=== PATIENT | male | born 1970 | race Caucasian/White ===

== ENCOUNTER 2018-02-25 09:32 | Inpatient (IN) | payer OTHER ==
[~2018-02-25] VITALS: Ht 152.4 cm; Wt 119.5 kg
[2018-02-25] VITALS (64 sets, daily range): BP systolic 70–150; BP diastolic 34–95
[2018-02-25] MEDS ORDERED: METFORMIN HCL500 MG PO (09:38)
[2018-02-25] MEDS ORDERED: SYNTHROID125 MC1 PO (09:39)
--- NOTE | 2018-02-25 09:41 | NUR ---
STEMI STARTED AT [address] FREED, SEE PAPERWORK
[2018-02-25 09:57] LABS: ABSOLUTE EOSINOPHILS 0.1 thou/uL (0.0-0.7); ABSOLUTE LYMPHOCYTES 1.4 thou/uL (0.8-5.3); ABSOLUTE MONOCYTES 0.6 thou/uL (0.0-1.2); ABSOLUTE NEUTROPHILS 4.2 thou/uL (1.6-8.1); BASOPHILS 0.1 %; EOSINOPHILS 0.8 %; HEMATOCRIT 45.6 % (42.0-52.0); HEMOGLOBIN 15.5 gm/dL (14.0-18.0); LYMPHOCYTES 22.3 %; MCHC 34.1 g/dL (28.0-37.0); MCV 88.2 fL (80.0-100.0); MONOCYTES 9.4 %; MPV 7.8 fl. (7.2-11.1); NUCLEATED RBCS 0 /100WBC; PLATELET COUNT* 227 thou/uL (150-400); POLYS 67.4 %; RBC 5.17 mil/uL (4.50-6.00); RDW-CV 14.2 % (10.5-14.5); WBC 6.2 thou/uL (4.0-11.0)
[2018-02-25 10:04] LABS: ANION GAP 7 mmol/L (7-16); BUN 11 mg/dL (7-18); CALCIUM 8.9 mg/dL (8.5-10.1); CHLORIDE 103 mmol/L (98-107); CO2 29 mmol/L (21-32); CREATININE 1.1 mg/dL (0.6-1.3); GLUCOSE 142 mg/dL (70-99); POTASSIUM 3.8 mmol/L (3.5-5.1); SODIUM 139 mmol/L (136-145)
[2018-02-25 10:08] LABS: APTT 27.8 Seconds (25.0-31.3)
[2018-02-25 10:27] LABS: ALBUMIN 4.1 g/dL (3.4-5.0); ALKALINE PHOSPHATASE 100 U/L (46-116); CK-MB MASS 1.4 ng/mL (<0.5-3.6); LIPASE 154 U/L (73-393); MAGNESIUM 1.7 mg/dL (1.8-2.4); NT-PRO BRAIN NAT PEPTIDE 43 pg/mL (<300); SGOT 12 U/L (15-37); SGPT 20 U/L (30-65); TOTAL BILIRUBIN 0.4 mg/dL (<0.1-1.0); TOTAL PROTEIN 7.8 g/dL (6.4-8.2); TROPONIN-I LEVEL <0.06 ng/mL (<0.06)
--- NOTE | 2018-02-25 13:50 | NUR ---
PATIENT ARRIVED TO UNIT AT 1300 FROM SPLICER HELPER. PATIENT AOX4. REPORTING CHEST PAIN AT 5/10. RIGHT GROIN SITE INTACT, NO DRAINAGE, NO HEMATOMA NOTED. VITALS STABLE WITH THE EXCEPTION OF SOFT BLOOD PRESSURE. RHYTHM WAS NSR, ELEVATIONS STILL NOTED IN LEAD II. NS @ 900 ML/HR INFUSING PER DR BURGESS. PATIENT HAD ANAPYLACTIC REACTION TO AGGRASTAT DURING CASE. PHYSICIAN WAS UNABLE TO COMPLETE CASE R/T REACTION. FAMILY ON UNIT TO VISIT WITH PATIENT. EKG COMPLETED AND GIVEN TO DR BURGESS BY SPLICER HELPER RN. PATIENT LEFT UNIT AT 1345 TO RETURN TO SPLICER HELPER.
--- NOTE | 2018-02-25 15:03 | NUR ---
PATIENT RETURNED TO THE UNIT FROM IT SERVICE MANAGER AT 1500. PATIENT AOX4, CALM, RELAXED. NSR ON FIRE PATROL WITH NO ELEVATIONS NOTED. AGGRASTAT 0.15 RUNNING, ORDERS TO RUN UNTIL 0600. PATIENT DENIES CHEST PAIN OR PAIN ELSEWHERE. RIGHT GROIN SITE WAS UTILIZED AGAIN DURING CASE. SITE REMAINS CLEAN/DRY/INTACT. NO HEMATOMA NOTED. IN ROOM AT THIS TIME.
--- NOTE | 2018-02-25 16:27 | EKG ---
[place] [address] ELECTROCARDIOGRAM REPORT Name: SINDY SANZ Room: [address] ADM IN M.R.#: [id number] Admission: 02/25/18 Attend Phys: Violeta Branham Discharge: Date of : 68 Report #: [id number] THIS REPORT FOR: //name// [facility] ED Test Date: 2018-02-25 Test Time: 09:36:14 Pat Name: SINDY SANZ Department: Room: [facility] Gender: M Commodity Buyer[place] [facility] [place] 1970 Requested By: Venkat Blanc Order Number: [id number] Clarissa MD: Harlan Grande Measurements Intervals [place] Rate: 48 P: 36 MI: 155 QRS: 40 QRSD: 97 T: 92 QT: 402 QTc: 360 Interpretive Statements Sinus bradycardia Inferoposterior infarct, acute (RCA) Lateral leads are also involved Probable RV involvement, suggest recording right precordial leads No previous ECG available for comparison Electronically Signed On 02-25-2018 16:27:28 CHECK GRADER by Harlan Grande [email or web address] <ELECTRONICALLY SIGNED> By: Harlan Grande MD, [facility] 02/25/18 1627 0936 0936 Harlan Grande MD, [facility] /EPI
--- NOTE | 2018-02-25 16:31 | EKG ---
[place] [address] ELECTROCARDIOGRAM REPORT Name: SINDY SANZ Room: [address] ADM IN M.R.#: [id number] Admission: 02/25/18 Attend Phys: Violeta Branham Discharge: Date of : 68 Report #: [id number] THIS REPORT FOR: //name// [facility] Test Date: 2018-02-25 Test Time: 13:14:33 Pat Name: SINDY SANZ Department: Room: [facility] Gender: M Concrete Pourer: : 1970 Requested By: Hayden Staley Order Number: [id number] MD: Harlan Grande Measurements Intervals [place] Rate: 84 P: 55 GA: 167 QRS: 75 QRSD: 90 T: 78 QT: 372 QTc: 440 Interpretive Statements Sinus rhythm Inferoposterior infarct, acute (LCx) Lateral leads are also involved ST depression V1-V3, suggest recording posterior leads No previous ECG available for comparison Electronically Signed On 02-25-2018 16:30:50 SHIFT SUPERVISOR FILM PROCESSING by Harlan Grande [email or web address] <ELECTRONICALLY SIGNED> By: Harlan Grande MD, FAC 02/25/18 1630 1314 1314 Harlan Grande MD, [facility] /EPI
--- NOTE | 2018-02-25 17:47 | NUR ---
AT 1630, PATIENT CALLED OUT FEELING DIZZY. SIGNIFICANT HEMATOMA NOTED. DR JEREZ ON THE FLOOR. PRESSURE HELD. SIGNIFICANT DECREASE IN PATIENT BLOOD PRESSURE WITH HOLDING PRESSURE. ORDERS TO RUN FLUIDS WIDE OPEN. PEDAL PULSE REMAINS 2+. DR BURGESS ON THE FLOOR, ORDERS FOR WHITFIELD CATHETER, PLACED WITHOUT DIFFICULTY. BLOOD PRESSURES REMAINING LOW BUT MAP >60. PATIENT FEELS FATIGUED. SLIGHTLY PALE, BUT CONVERSATIONAL. BLOOD PRESSURES Q5MIN. GROIN CHECKED FREQUENTLY, NO INCREASE IN SIZE. DR JEREZ TO CALL THE FLOOR AND CHECK ON PATIENT.
--- NOTE | 2018-02-25 18:47 | NUR ---
DR BURGESS PAGED TO CLARIFY FLUID ORDERS. INFORMED HIM THAT PATIENT'S BLOOD PRESSURE IS REMAINING IN 80/50 RANGE WITH MAP 60-62 WITH FLUIDS WIDE OPEN. ORDERS TO LEAVE FLUIDS WIDE OPEN AT THIS TIME, DRAW STAT H&H. PATIENT COMPLAINTS OF COLD. ANTHONY SUNNIER IN PLACE FOR COMFORT.
[2018-02-25 19:17] LABS: HEMOGLOBIN 12.4 gm/dL (14.0-18.0)
--- NOTE | 2018-02-25 19:33 | NUR ---
STAT H& RESULTS READ TO DR BURGESS. ORDES TO START DOPAMIN AT 5 MCG/KG/MIN AND TITRATE TO 10 MCG/KG/MIN IF TOLERTATED. PER DR BURGESS, BACK OFF FLUIDS T 125 ML/HR WHEN SYSTOLIC >90, MAP >65.
[2018-02-26] VITALS (48 sets, daily range): BP systolic 76–118; BP diastolic 34–69
[2018-02-26 04:12] LABS: HEMATOCRIT 38.6 % (42.0-52.0); HEMOGLOBIN 12.9 gm/dL (14.0-18.0); MCH 29.7 pg (26.0-34.0); MCHC 33.4 g/dL (28.0-37.0); MCV 88.9 fL (80.0-100.0); RBC 4.35 mil/uL (4.50-6.00); RDW-CV 14.5 % (10.5-14.5); WBC 14.7 thou/uL (4.0-11.0)
[2018-02-26 05:08] LABS: ALBUMIN 2.9 g/dL (3.4-5.0); ALKALINE PHOSPHATASE 54 U/L (46-116); ANION GAP 8 mmol/L (7-16); BUN 11 mg/dL (7-18); CHLORIDE 106 mmol/L (98-107); CHOLESTEROL 115 mg/dL (<200); CK-MB MASS 60.6 ng/mL (<0.5-3.6); CO2 24 mmol/L (21-32); CREATININE 1.1 mg/dL (0.6-1.3); GLUCOSE 219 mg/dL (70-99); HDL CHOLESTEROL 32 mg/dL (>40); LDL CHOLESTEROL 67 mg/dL (<100); POTASSIUM 4.3 mmol/L (3.5-5.1); SGOT 66 U/L (15-37); SGPT 25 U/L (30-65); SODIUM 138 mmol/L (136-145); TC:HDL 3.6 Ratio (Not establshd); TOTAL BILIRUBIN 0.5 mg/dL (<0.1-1.0); TOTAL PROTEIN 5.8 g/dL (6.4-8.2); TRIGLYCERIDE 84 mg/dL (<150); VLDL 17 mg/dL (<40)
[2018-02-26 05:12] LABS: SERUM ASSESSMENT Clear
[2018-02-26 05:13] LABS: TROPONIN-I LEVEL 17.63 ng/mL (<0.06)
--- NOTE | 2018-02-26 06:28 | NUR ---
PATIENT STARTED ON DOPAMINE BEGINNING OF SHIFT, ABLE TO TITRATE DOPAMINE FROM 5MCG/KG/MIN TO 10MCG/KG/MIN AND NS DOWN FROM WIDE OPEN TO 125ML/HR PER ORDER. AGRASTAT DC'D AT 0000. PATIENT ABLE TO MAINTAIN MAP>65 SINCE 2044. AFEBRILE, DENIES CHEST PAIN, SOB, DISCOMFORT THROUGHOUT SHIFT. NO INCREMENT IN SIZE OR DISCOLORATION OF HEMATOMA SITE, PEDAL PULSES PRESENT AND STRONG BILATERALLY. PATIETNT DENIES PAIN TO HEMATOMA SITE. PATIENT ON 4L OF O2 PER NC THROUGHOUT MOST OF THIS SHIFT, TITRATED DOWN TO 1L AT THIS TIME DUE TO IMPROVED SPO2. GOOD OUTPUT THROUGH WHITFIELD. PATIENT STATES HE HOPES TO BE ABLE TO BE OUT OF BED MORE TODAY. CALL LIGHT WITHIN REACH, PATIENT SLEEPING IN BED. WILL CONTINUE TO MONITOR.
--- NOTE | 2018-02-26 10:32 | NUR ---
Nutrition: Consult for "DM and STEMI." Pt admitted with STEMI. H/o DM II, CAD. Heart Healthy diet ordered. Wt up a little form admit: 253#. RX: aspirin, insulin. Albumin 2.9, TG 84, BG 200s. Pt experienced severe anaphylaxis yday. Per ICU rounds, pt is very tired, hasn't slept d/t so many procedures. RD will offer education when pt is off of ICU unit. Will follow up 02/28/18.
--- NOTE | 2018-02-26 15:00 | NUR ---
CHART REVIEWED, SPOKE WITH PT AND . PT HAS BEEN ACTIVE AND INDEP AT HOME PRIOR TO THIS ADMISSION. HE SAID HE HAS RECENTLY GONE TO 'SOME HEALTH CLINIC, I CAN'T REMEMBER THE NAME OF IT.' HE WAS STARTED ON METFORMIN SEVERAL MONTHS AGO, AND THEN ON SYNTHROID ABOUT A MONTH AGO. HE SAID HE HAS AN APPT TO GO BACK TO THE CLINIC IN MARCH, HE HAS THE NAME AND PHONE NUMBER AT HOME. PT HAS A GLUCOSE METER AT HOME. PT IS SELF-EMPLOYED. PT HAS SUPPORTIVE FAMILY, DENIES ANY DISCHARGE NEEDS. DISCUSSED ROLE OF CASE MGT, WILL CONTINUE TO FOLLOW.
--- NOTE | 2018-02-26 17:05 | NUR ---
PATIENT PROGRESSING TOWARDS GOALS. TITRATED TO MCG/KG/MIN ON DOPAMINE THIS SHIFT. UP IN CHAIR. HEMATOMA TO RIGHT GROIN REMAINS STABLE. ON 2L NC THROUGHOUT SHIFT. WHITFIELD DISCONTINUED. ADEQUATE URINE OUTPUT. MULTIPLE FAMILY MEMBERS PRESENT THIS SHIFT. DENIES FURTHER NEEDS FROM NURSING STAFF AT THIS TIME.
--- NOTE | 2018-02-26 17:40 | 2DMMODE ---
[place] [address] 2 D/M-MODE ECHOCARDIOGRAM Name: SINDY SANZ Room: [address] IN [facility]#: [id number] Admission: 02/25/18 Attend Phys: Barrington Jacobs Discharge: Date of : 68 Date of Service: 02/26/18 1740 Report #: [id number] THIS REPORT FOR: //name// APPROVED REPORT Study performed: 02/26/2018 09:37:43 EXAM: Comprehensive 2D, Doppler, and color-flow Echocardiogram Patient Location: In-Patient Room #: [facility] Status: routine BSA: 2.35 HR: 57 bpm BP: 96/55 mmHg Rhythm: NSR Other Information Study Quality: Good Indications Acute OK 2D Dimensions IVSd: 11.63 (7-11mm) LVOT Diam: 20.92 (18-24mm) LVDd: 44.74 mm PWd: 10.57 (7-11mm) Ascending Ao: 37.04 (22-36mm) LVDs: 25.45 (25-40mm) Aortic Root: 35.43 mm Volumes Left Atrial Volume (Systole) LA ESV Index: 19.80 mL/m2 Aortic Valve AoV Peak Cornell.: 1.42 m/s AO Peak Gr.: 8.04 mmHg LVOT Max P.12 mmHg AO Mean Gr.: 4.72 mmHg LVOT Mean P.96 mmHg LVOT Max V: 1.24 m/s AO V2 VTI: 24.76 cm LVOT Mean V: 0.79 m/s NAHOMI (VTI): 3.16 cm2 LVOT V1 VTI: 22.74 cm Mitral Valve E/A Ratio: 1.75 MV Decel. Time: 245.39 ms MV E Max Cornell.: 0.84 m/[place] [address] 2 D/M-MODE ECHOCARDIOGRAM Name: SINDY SANZ Room: [address] IN [facility].#: [id number] Admission: 02/25/18 Attend Phys: Barrington Jacobs Discharge: Date of : 68 Date of Service: 02/26/18 1740 Report #: [id number] MV PHT: 71.16 ms MVA (PHT): 3.09 cm2 TDI E/Lateral E': 6.46 E/Medial E': 6.46 Medial E' Cornell.: 0.13 m/s Lateral E' Cornell.: 0.13 m/s Pulmonary Valve PV Peak Cornell.: 1.16 m/s PV Peak Gr.: 5.34 mmHg Tricuspid Valve RAP Estimate: 5.00 mmHg TR Peak Gr.: 22.95 mmHg RVSP: 28.00 mmHg PA Pressure: 28.00 mmHg Left Ventricle The left ventricle is normal size. Mild lateral wall hypokinesis. There is normal left ventricular wall thickness. Left ventricular systolic function is preserved. LVEF is 60-65%. The left ventricular diastolic function is normal. Right Ventricle The right ventricle is normal size. The right ventricular systolic function is normal. Atria The left atrium size is normal. The right atrium size is normal. Aortic Valve The aortic valve is normal in structure. No aortic regurgitation is present. There is no aortic valvular stenosis. Mitral Valve The mitral valve is normal in structure. There is no mitral valve regurgitation noted. No evidence of mitral valve stenosis. Tricuspid Valve The tricuspid valve is normal in structure. Trace tricuspid regurgitation. No pulmonary hypertension. Pulmonic Valve The pulmonary valve is normal in structure. [place] [address] 2 D/M-MODE ECHOCARDIOGRAM Name: SINDY SANZ Room: [address] IN [facility]#: [id number] Admission: 02/25/18 Attend Phys: Barrington Jacobs Discharge: Date of : 68 Date of Service: 02/26/18 1740 Report #: [id number] Great Vessels The aortic root is normal in size. IVC is normal in size and collapses >50% with inspiration. Pericardium There is no pericardial effusion. <Conclusion> The left ventricle is normal size. There is normal left ventricular wall thickness. Left ventricular systolic function is preserved. LVEF is 60-65%. The left ventricular diastolic function is normal. Mild lateral wall hypokinesis. Trace tricuspid regurgitation. No pulmonary hypertension. IVC is normal in size and collapses >50% with inspiration. <ELECTRONICALLY SIGNED> By: Venkat Blanc MD, FACC 02/26/18 [phone] 39 Venkat Blanc MD, FACC /INF
--- NOTE | 2018-02-26 18:07 | EKG ---
[place] [address] ELECTROCARDIOGRAM REPORT Name: SINDY SANZ Room: [address] ADM IN M.R.#: [id number] Admission: 02/25/18 Attend Phys: Violeta Branham Discharge: Date of : 68 Report #: [id number] THIS REPORT FOR: //name// [facility] Test Date: 2018-02-26 Test Time: 05:44:21 Pat Name: SINDY SANZ Department: Room: [facility] Gender: M Carton Filler: LAURITA : 1970 Requested By: Venkat Blanc Order Number: [id number] Reading MD: Venkat Blanc Measurements Intervals [place] Rate: 60 P: 108 WI: 117 QRS: 41 QRSD: 101 T: 18 QT: 383 QTc: 383 Interpretive Statements Sinus rhythm Borderline short WI interval Inferior infarct, acute (RCA) Borderline ST elevation, anterior leads Probable RV involvement, suggest recording right precordial leads Compared to ECG 02/25/2018 13:14:33 No significant changes Electronically Signed On 02-26-2018 18:07:07 IT DIRECTOR by Venkat Blanc [email or web address] <ELECTRONICALLY SIGNED> By: Venkat Blanc MD, FACC 02/26/18 1807 0544 0544 Venkat Blanc MD, [facility] /EPI
[2018-02-27] VITALS (46 sets, daily range): BP systolic 89–125; BP diastolic 46–76
--- NOTE | 2018-02-27 06:53 | NUR ---
Pt reports he feels better than yesterday. Denies chest pain. VSS, though BP soft at times (90s-100s/50s). Dopamine gtt weaned to 3 mcg/kg/min. New drsg placed to Rt groin; no new drainage from site, remains soft and bruised. Pt up in chair most of day and evening until 2229. Voiding without difficulty. Will continue to monitor.
[2018-02-27 12:59] LABS: ABSOLUTE MONOCYTES 0.8 thou/uL (0.0-1.2); ABSOLUTE NEUTROPHILS 5.5 thou/uL (1.6-8.1); BASOPHILS 0.1 %; EOSINOPHILS 0.2 %; HEMATOCRIT 29.2 % (42.0-52.0); LYMPHOCYTES 13.3 %; MCH 30.4 pg (26.0-34.0); MCHC 34.4 g/dL (28.0-37.0); MCV 88.5 fL (80.0-100.0); MONOCYTES 10.5 %; MPV 8.1 fl. (7.2-11.1); NUCLEATED RBCS 0 /100WBC; PLATELET COUNT* 215 thou/uL (150-400); POLYS 75.9 %; RBC 3.29 mil/uL (4.50-6.00); RDW-CV 13.8 % (10.5-14.5); WBC 7.2 thou/uL (4.0-11.0)
--- NOTE | 2018-02-27 14:41 | CARD ---
[facility] [address] [place] [address] CARDIAC CATH REPORT Name: UMUSINDY Room: [address] IN [facility].#: [id number] Admission: 02/25/18 Attend Phys: Violeta Branham Discharge: Date of : 68 Report #: [id number] THIS REPORT FOR: //name// APPROVED REPORT Study performed: 02/25/2018 09:30:41 Patient Details Patient Status: ED Room #: The patient is a 47 year-old male Event Personnel Venkat Blanc Adjunct Psychology Instructor, Harlan Grande Adjunct Psychology Instructor, Onelia Rajan RN Machine Folder, Aguila Carmona (R) Monitor, Mercy Chaudhry ANTISQUEAK APPLIER Scrub, Iqra Linares RTR Monitor Procedures Performed Art Access - R femoral artery* MEAGAN Place w/wo Plasty Single CIRC Hemostasis w/ Angioseal Indication STEMI Risk Factors Family History, Hypercholesterolemia Admission/Lab Medications/Medications given during procedure Aspirin, Platelet Aff. Inhib., Angiomax; heparin. The patient developed a profound reaction after administration of Angiomax with upper tension hives and mild difficulty of breathing suggesting an anaphylactoid response to the Angiomax. That medicine was discontinued and heparin was utilized thereafter. The patient received steroids Benadryl and epinephrine in therapy for the allergic response Procedure Narrative The patient was brought emergently to the Cardiac Catheterization Laboratory and was prepped and draped in a sterile manner. The right femoral was infiltrated with 2% Lidocaine subcutaneous anesthesia. A [place] 6 FR sheath was inserted into the right femoral artery. Coronary angiography was performed using coronary diagnostic catheters. The right coronary system was accessed and visualized with a Diagnostic 6Fr JR4 catheter. The left coronary system was accessed and visualized with a Diagnostic 6Fr JL4 catheter. Closure device was deployed with a Fr Angioseal STS 6Fr. [place]ost[place] [address] CARDIAC CATH REPORT Name: SINDY SANZ Room: [address] IN [facility].#: [id number] Admission: 02/25/18 Attend Phys: Violeta Branham Discharge: Date of : 68 Report #: [id number] manual pressure following sheath removal without any complications. A hematoma occurred. Intraoperative Conscious Sedation Sedation start time: 955 Case end Time: 1228 Versed 1 mg Fluoro Time: 65.1 minutes Dose: DAP [id number] cGycm2 6415 mGy Contrast Type and Amount: Visipaque 500 ml Diagnostic Cath Left Main 0% narrowing LAD 40% tubular proximal LAD narrowing with 100% chronic total occlusion of the mid LAD and 90% stenosis proximal portion of the first diagonal branch Circumflex 100% mid circumflex occlusion with local thrombus at the site Right Coronary 43% tubular proximalmid right coronary narrowing Hemodynamics The aortic pressure is 142/92 mmHg with a mean of 110 mmHg. PCI Technique Lesion Anticoagulation was achieved with Heparin. Percutaneous coronary intervention was performed on the mid circumflex artery segment. The lesion stenosis prior to intervention was 100% with CHEMA 0 flow. A Diagnostic 6Fr JL4 Guide Catheter was used to engage the ostium. A BMW 300cm Interventional Guidewire was used to cross the lesion. BALLOON DILATION A Balloon catheter Mini Trek RX 1.2X8 was inserted and inflated up to 14.00atm for 14seconds. Additional Inflation: 16.00atm for 9seconds. Additional Inflation: 14.00atm for 12seconds. STENT DEPLOYMENT A drug-eluting stent [place] RX Stent 2.0X12mm was inserted and inflated up to 16.00atm for 12seconds. Additional Inflation: 18.00atm for 11seconds. Additional Inflation: 18.00atm for 10seconds. POST STENT DEPLOYMENT BALLOON DILATION A Balloon catheter [place] Trek RX 2.25 X 8 was inserted and inflated up to 16.00atm for 15seconds. [place] [address] CARDIAC CATH REPORT Name: SINDY SANZ Room: [address] IN M.R.#: [id number] Admission: 02/25/18 Attend Phys: Violeta Branham Discharge: Date of : 68 Report #: [id number] Final angiography reveals 10 % stenosis with CHEMA 3 flow. COMMENTS After initial cineangiograms were performed utilizing a diagnostic JL4 catheter, I was unable to find a suitable guiding catheter and the intervention was performed through the diagnostic catheter outlined above. BALLOON DILATION A Balloon catheter was inserted and inflated up to 16.00atm for 12seconds. PCI Technique Lesion Percutaneous coronary intervention was performed on the mid circumflex artery segment. BALLOON DILATION A Balloon catheter Mini Trek RX 2.0 X 8 was inserted and inflated up to 18.00atm for 17seconds. Additional Inflation: 18.00atm for 14seconds. Additional Inflation: 18.00atm for 10seconds. PCI Technique Lesion Percutaneous coronary intervention was performed on the mid circumflex artery segment. BALLOON DILATION A Balloon catheter Trek RX 2.5 X 8 was inserted and inflated up to 12.00atm for 15seconds. Additional Inflation: 15.00atm for 14seconds. Additional Inflation: 16.00atm for 11seconds. Conclusion #[address] segment elevation myocardial infarction secondary to total occlusion of the mid circumflex with local thrombus at the site #2. Coronary artery disease characterized by the following: A total occlusion of the mid circumflex with local thrombus at the site B 40% proximal LAD narrowing with 100% chronic total occlusion of the mid LAD with 90% proximal first diagonal stenosis C dominant right coronary artery with 40-50% [place] [address] CARDIAC CATH REPORT Name: SINDY SANZ Room: [address]#: [id number] Admission: 02/25/18 Attend Phys: Violeta Branham Discharge: Date of : 68 Report #: [id number] vessel narrowing #2 normal systemic pressure throughout the study #3 anaphylactoid response to Angiomax with hypotension hives and mild respiratory difficulty responding to the administration of steroids Benadryl fluids and epinephrine #4 successful percutaneous coronary intervention with deployment of a drug-eluting stent at site of 100% midcircumflex occlusion with 10% residual narrowing CHEMA-3 flow to the distal vessel vessel and no residual thrombus. Recommendations Cardiac Risk Reduction Program Aggressive Medical Therapy Medications Administered Aspirin (any) Ticagrelor Diagnostic Cath Approved by: Venkat Blanc MD Date/Time: 02/27/2018 14:38:33 <ELECTRONICALLY SIGNED> By: Harlan Grande MD, [facility] 02/27/18 1440 1440 1440Jogerry Grande MD, FACC /INF
--- NOTE | 2018-02-27 14:49 | CARD ---
[address] [address] CARDIAC CATH REPORT Name: UMUSINDY [place] Room: [address] IN [facility]#: [id number] Admission: 02/25/18 Attend Phys: Violeta Branham Discharge: Date of : 68 Report #: [id number] THIS REPORT FOR: //name// APPROVED REPORT Study performed: 02/25/2018 13:34:18 Patient Details Patient Status: In-Patient Room #: The patient is a 47 year-old male Event Personnel Onelia Rajan RN RN, Mercy Linares, Mercy Chaudhry Holkins, John Supervisor Winter, Venkat Blanc Insurance Risk Surveyor Procedures Performed Art Access - R femoral artery* PTCA Single Vessel CIRC PCISINGLE after selective left coronary arteriography Indication STEMI , Acute stent thrombosis after recent deployment Risk Factors Hypercholesterolemia, Hypertension Previous Procedures/Diagnoses Previous PR Admission/Lab Medications/Medications given during procedure Glycoprotein IllbIlla Inhibitors, [place] [address] units, Aggrastat Unknown 11 ml, Aggrastat IV 19.5 ml per hr Procedure Narrative The patient was brought emergently to the Cardiac Catheterization Laboratory and was prepped and draped in a sterile manner. The right femoral was infiltrated with 2% Lidocaine subcutaneous anesthesia. A [place] 6 FR sheath was inserted into the right femoral artery. Coronary angiography was performed using coronary diagnostic catheters. The left coronary system was accessed and visualized with a Diagnostic JL4 catheter. The patient tolerated the procedure well and there were no complications associated with the procedure[place] [address] CARDIAC CATH REPORT Name: SINDY SANZ Room: [address]#: [id number] Admission: 02/25/18 Attend Phys: Violeta Branham Discharge: Date of : 68 Report #: [id number] Fluoro Time: 7.7 minutes Dose: 921.4 mGy Contrast Type and Amount: Visipaque 80 ml Diagnostic Cath Left Main 0% narrowing LAD 40% tubular proximal narrowing with 100% chronic total occlusion of the mid vessel with 90% first diagonal stenosis Circumflex 90% mid circumflex in-stent occlusion with local thrombus at the site Hemodynamics The aortic pressure is 75/49 mmHg with a mean of 62 mmHg. PCI Technique Lesion Percutaneous coronary intervention was performed on the mid circumflex. The lesion stenosis prior to intervention was 90% with CHEMA 2-3 flow. A Diagnostic 6Fr JL4 Guide Catheter was used to engage the ostium. A BMW 190cm Interventional Guidewire was used to cross the lesion. BALLOON DILATION A Balloon catheter Trek RX 2.25 X 8 was inserted and inflated up to 12.00atm for 11seconds. Additional Inflation: 18.00atm for 12seconds. Additional Inflation: 18.00atm for 11seconds. Final angiography reveals 10 % stenosis with CHEMA 3 flow. COMMENTS The patient developed early acute stent thrombosis of the recently deployed mid circumflex stent requiring mention with the addition of Aggrastat infusion to the heparin bolus Conclusion #1 early postprocedure stent thrombosis with recurrent ST segment elevation infarction #2 successful angioplasty at the site of 90% mid circumflex in-stent occlusion with local thrombus at the site with 10% residual narrowing following angioplasty and no thrombus noted #3 addition of Aggrastat to heparin during and post procedurally #4 additional coronary disease as outlined [place] [address] CARDIAC CATH REPORT Name: UMUSINDY GONZALEZ Room: [address] IN [facility]#: [id number] Admission: 02/25/18 Attend Phys: Violeta Branham Discharge: Date of : 68 Report #: [id number] note of 02/25/18 Recommendations Cardiac Risk Reduction Program Aggressive Medical Therapy Medications Administered Aggrastat bolus and infusion Diagnostic Cath Approved by: Venkat Blanc MD Date/Time: 02/27/2018 14:48:17 <ELECTRONICALLY SIGNED> By: Harlan Grande MD, [facility] 02/27/18 1448 1448 1448John Nita Grande MD, FACC /INF
--- NOTE | 2018-02-27 16:35 | NUR ---
PT FAMILY AT BEDSIDE. ASKED NURSES IF PT COULD GO OUTSIDE TO VAPE. THIS NURSE WENT INTO THE PTS ROOM AND INFORMED PT HE WAS NOT ALLOWED TO LEAVE THE HOSPITAL TO SMOKE OR VAPE ON HOSPITAL PROPERTY. THIS NURSE ASKED IF HE WOULD LIKE A NICOTINE PATCH. PT REFUSED. THIS NURSE ATTEMPTED TO EDUCATE PT ON THE VAPING. THE PT INTERUPTED ME AND TOLD ME "THIS HOSPITAL DOESN'T KNOW [place] ABOUT POPCORN LUNGS AND NEEDS TO BE RE-EDUCATED AND DO MORE RESEARCH BECAUSE HE HAS!" THE PT REQUESTED TO LEAVE AMA. PT WAS INFORMED OF THE HOSPITALS POLICY ON AMA. PT REQUESTED TO LEAVE ANYWAYS. PT REQUESTED NOT TO HAVE THIS NURSE COME BACK TO HIS ROOM. PT VERY AGGITATED AND STATED I UPSET HIM WHEN I ATTEMPTED TO TALK TO HIM ABOUT VAPING. DR. BURGESS WAS NOTIFIED. DR. BURGESS CALLED IN A PRESCRIPTION FOR PLAVIX. PT SIGNED AMA PAPERS AND HAD IV'S REMOVED. PT LEFT WITH FAMILY MEMBER.
--- NOTE | 2018-02-27 16:45 | NUR ---
PATIENT WAS UPSET BY HIS NURSES COMMENT THAT HE COULD NOT VAPE, ATTEMPTED TO EDUCATE PATIENT ON IMPORTANCE OF STAYING AND THAT SOME INSURANCES DON'T ALWAYS COVER WHEN A PATIENT LEAVES AMA, EDUCATED HIM ON THAT IF DIDNT UTILITY WORKER FORGE HIS MEDICATIONS AND TAKE THEM DAILY THAT HE COULD REOCCULDE AND END UP BACK IN THE HOSPITAL WITH THE SAME SENERIO. PATIENT VOICED THAT HE UNDERSTOOD AND STILL WANTED TO GO HOME BECAUSE HE FELT FINE AND HIS NURSE WOULDN'T LET HIM GO OUT TO VAPE. PATIENT SIGNED AMA PAPERWORK, IV TAKEN OUT, PATIENT WALKED OUT TO CAR, REFUSED WHEELCHAIR.
--- NOTE | 2018-03-03 12:47 | CON ---
[address] [address] CONSULTATION Name: SINDY SANZ Room: [address] IN M.R.#: [id number] Admission: 02/25/18 Attend Phys: Violeta Branham Discharge: 02/27/18 Date of : 68 Report #: [id number] THIS REPORT FOR: //name// CC: YESIKA physician/PCP Harlan Jacobs DATE OF SERVICE: 02/25/2018 INDICATION: Acute inferior wall ST elevation myocardial infarction. HISTORY OF PRESENT ILLNESS: The patient is a very pleasant 47-year-old gentleman with no prior cardiac history. Cardiac risk factors include diabetes type 2 and family history of coronary artery disease. The patient awoke this morning with midsternal chest discomfort starting approximately 7:30 and was brought to the Emergency Room. In the Emergency Room, he was found to have ST elevation in the inferior leads with bradycardia consistent with acute inferior wall myocardial infarction. The patient was given aspirin x 2 in the Emergency Room and taken urgently to the cardiac catheterization lab. At catheterization, he was found to have a chronically occluded LAD that filled by right to left collaterals and an acutely occluded mid circumflex coronary artery. A dominant right coronary artery was patent. The patient underwent urgent revascularization to the mid circumflex coronary artery. The patient ultimately had a 2.25 stent placed and postdilated to approximately 2.5 mm. Subsequent to this, after returning to the ICU, the patient had acute in-stent thrombosis and was returned to the cardiac catheterization lab. At this time, a noncompliant balloon was deployed and the patient placed on an Aggrastat drip in addition to his heparin. The patient's symptoms spontaneously resolved and he was again transferred back to the Intensive Care Unit. The patient remains stable at this time. Chest pain has resolved. PAST MEDICAL HISTORY: 1. Type 2 diabetes mellitus. 2. Hypothyroidism. PAST SURGICAL HISTORY: None. CURRENT MEDICATION: Metformin 500 mg daily and levothyroxine 125 mcg daily. ALLERGIES: KEFLEX AND NOW ANGIOMAX. THE PATIENT HAD RATHER SIGNIFICANT ALLERGIC REACTION TO THE ANGIOMAX DURING THE PROCEDURE. SOCIAL HISTORY: The patient quit smoking regular [place] [address] CONSULTATION Name: SINDY SANZ Room: [address]#: [id number] Admission: 02/25/18 Attend Phys: Violeta Branham Discharge: 02/27/18 Date of : 68 Report #: [id number] e-cigarette presently. Drinks alcohol occasionally. FAMILY HISTORY: Positive for coronary artery disease. REVIEW OF SYSTEMS: A 14-point review of systems noncontributory. PHYSICAL EXAMINATION: VITAL SIGNS: Presently stable. Blood pressure 98/48, pulse 72 and regular. GENERAL: This is a pleasant gentleman in no distress. Mood and affect appropriate. HEENT: Extraocular muscles intact. Mucous membranes are moist. NECK: Shows no jugular venous distention. There are no carotid bruits. CHEST: Reveals clear lung lowry without wheezes or rales. CARDIOVASCULAR: Reveals a regular rhythm without gallop or murmur. ABDOMEN: Reveals normal bowel sounds. The abdomen is soft, nontender. EXTREMITIES: Shows no edema. Peripheral pulses palpable. LABORATORY DATA: A 12-lead EKG on admission showed sinus bradycardia with ST segment elevation acutely in the inferior leads with reciprocal ST segment depression in the anterior leads. Labs showed sodium 139, potassium 3.8, chloride 103, bicarb 29, BUN 11, creatinine 1.1, serum glucose 142. LFTs are within normal limits. Total protein 7.8, albumin 4.1. Initial troponin was less than 0.06 and subsequently 0.84. NT-proBNP is 43. Coags are within normal limits. White blood cell count 6.2, hemoglobin 15.5, platelet count 227,000. Chest x-ray shows no acute cardiopulmonary abnormality. IMPRESSION AND RECOMMENDATIONS: 1. Acute inferior wall ST elevation myocardial infarction due to occluded circumflex coronary artery. The patient underwent percutaneous coronary intervention. He remains on Aggrastat, heparin and received aspirin. He was given Brilinta as well. He will remain on dual antiplatelet therapy for at least 6 months. Continue Aggrastat overnight. 2. Chronically occluded left anterior descending coronary artery that fills by collaterals. Consider noninvasive stress testing to evaluate whether this is causing any significant ischemia at this time, which would prompt further treatment. 3. Coronary artery disease. Continue dual antiplatelet therapy indefinitely. Continue risk factor modification. 4. Probable hyperlipidemia. We will start a statin agent [place] [address] CONSULTATION Name: SINDY SANZ Room: [address] IN [facility]#: [id number] Admission: 02/25/18 Attend Phys: Violeta Branham Discharge: 02/27/18 Date of : 68 Report #: [id number] fasting lipid profiles. 5. Type 2 diabetes mellitus per primary physician. <ELECTRONICALLY SIGNED> By: Venkat Blanc MD, FACC 03/03/18 1247 1700 2131[facility] campusdomingo Blanc MD, FACC /nt
== END 2018-02-27 17:31 | disposition left against medical advice (07) | DRG 247 ==
LOC: M.ERS 09:32 → M.CL 09:32 → M.ERS 09:50 → M.ICU 12:42 → M.TBA-CV 12:42 → M.ICU 13:00
PROVIDERS: Family Medicine; Internal Medicine Cardiovascular Disease; ADMIT Internal Medicine
PROC: 027034Z Dilation of Coronary Artery, One Artery with Drug-eluting Intraluminal Device, Percutaneous Approach (ICD-10-PCS; principal; 2018-02-25)
PROC: 02703ZZ Dilation of Coronary Artery, One Artery, Percutaneous Approach (ICD-10-PCS; principal; 2018-02-25)
PROC: 4A023N7 Measurement of Cardiac Sampling and Pressure, Left Heart, Percutaneous Approach (ICD-10-PCS; principal; 2018-02-25)
PROC: B211YZZ Fluoroscopy of Multiple Coronary Arteries using Other Contrast (ICD-10-PCS; principal; 2018-02-25)
DX: I21.19 ST elevation (STEMI) myocardial infarction involving other coronary artery of inferior wall (principal); T82.867A Thrombosis due to cardiac prosthetic devices, implants and grafts, initial encounter; E11.9 Type 2 diabetes mellitus without complications; F17.290 Nicotine dependence, other tobacco product, uncomplicated; I25.10 Atherosclerotic heart disease of native coronary artery without angina pectoris; Z53.21 Procedure and treatment not carried out due to patient leaving prior to being seen by health care provider; E03.9 Hypothyroidism, unspecified; I95.9 Hypotension, unspecified; Z79.82 Long term (current) use of aspirin; Z88.8 Allergy status to other drugs, medicaments and biological substances; Z82.49 Family history of ischemic heart disease and other diseases of the circulatory system; Z83.3 Family history of diabetes mellitus; Z79.899 Other long term (current) drug therapy; Y84.0 Cardiac catheterization as the cause of abnormal reaction of the patient, or of later complication, without mention of misadventure at the time of the procedure; Y92.230 Patient room in hospital as the place of occurrence of the external cause

== ENCOUNTER 2018-03-01 03:23 | Inpatient (IN) | payer OTHER ==
[~2018-03-01] VITALS: Ht 182.9 cm; Wt 114.8 kg
[2018-03-01] VITALS (8 sets, daily range): BP systolic 109–144; BP diastolic 70–93
[~2018-03-01 03:23] MED LIST: METFORMIN HCL500 MG PO; SYNTHROID125 MC1 PO
[2018-03-01] MEDS ORDERED: PLAVIX 75 MG TA75 M1 PO (03:34)
[2018-03-01] MEDS ORDERED: ASPIR 8181 MG PO (03:34)
[2018-03-01 03:57] LABS: ABSOLUTE EOSINOPHILS 0.1 thou/uL (0.0-0.7); ABSOLUTE MONOCYTES 0.6 thou/uL (0.0-1.2); ABSOLUTE NEUTROPHILS 5.1 thou/uL (1.6-8.1); BASOPHILS 0.2 %; EOSINOPHILS 0.8 %; HEMOGLOBIN 9.6 gm/dL (14.0-18.0); LYMPHOCYTES 14.2 %; MCHC 35.4 g/dL (28.0-37.0); MCV 87.6 fL (80.0-100.0); MONOCYTES 8.2 %; MPV 7.6 fl. (7.2-11.1); NUCLEATED RBCS 0 /100WBC; PLATELET COUNT* 216 thou/uL (150-400); POLYS 76.6 %; RBC 3.09 mil/uL (4.50-6.00); WBC 6.7 thou/uL (4.0-11.0)
[2018-03-01 04:09] LABS: CREATININE 0.8 mg/dL (0.6-1.3); POTASSIUM 3.5 mmol/L (3.5-5.1)
[2018-03-01 04:11] LABS: PROTIME 9.8 Seconds (9.20-11.50)
[2018-03-01 04:19] LABS: MAGNESIUM 1.7 mg/dL (1.8-2.4); TOTAL BILIRUBIN 0.5 mg/dL (<0.1-1.0); TOTAL PROTEIN 6.1 g/dL (6.4-8.2)
[2018-03-01 04:20] LABS: TROPONIN-I LEVEL 2.68 ng/mL (<0.06)
--- NOTE | 2018-03-01 17:17 | NUR ---
PATIENT PROGRESSING TOWARDS GOALS. REMAINED AOX4 TODAY. STARTED ON BID XARELTO FOR PULMONARY EMBOLISM. SAMPLES GIVEN BY CARDIOLOGY. CONTINUED ON DAILY PLAVIX FOR STENT FROM PREVIOUS PA. PATIENT DENIES FURTHER NEEDS FROM NURSING. POSSIBLE DISCHARGE TOMORROW.
[2018-03-02] VITALS: BP 124/77
[2018-03-02 04:00] VITALS: BP 118/82
--- NOTE | 2018-03-02 05:26 | NUR ---
ASSUMED PT CARE AT 1930. ASSESSMENT COMPLETED CHARTED. NO C/O PAIN OR DISCOMFORT UNTIL THIS MORNING WHILE LAYING FLAT. HAD 2/10 SHARP CHEST PAIN. PT SAT UP AND DRANK WATER AND STATED PAIN WENT AWAY. PT IN ROOM. PT RESTING IN BED AT THIS TIME. WILL CONTINUE TO MONITOR.
[2018-03-02 08:00] VITALS: BP 121/74
[2018-03-02 11:49] VITALS: BP 119/81
--- NOTE | 2018-03-02 12:29 | EKG ---
[place] [address] ELECTROCARDIOGRAM REPORT Name: SINDY SANZ Room: [place] [address] ADM IN M.R.#: [id number] Admission: 03/01/18 Attend Phys: Martínez Faith MD Discharge: Date of : 68 Report #: [id number] THIS REPORT FOR: //name// [facility] ED Test Date: 2018-03-01 Test Time: 03:25:13 Pat Name: SINDY SANZ Department: Room: [facility] Gender: M Manager Maritime: : 1970 Requested By: Louis Salazar Order Number: [id number] MD: Venkat Blanc Measurements Intervals [place] Rate: 77 P: 33 [place]: 165 QRS: -55 QRSD: 96 T: 45 QT: 562 QTc: 637 Interpretive Statements Sinus rhythm Inferior infarct, old Prolonged QT interval Compared to ECG 02/26/2018 05:44:21 Prolonged QT interval now present ST (T wave) deviation no longer present Myocardial infarct finding still present Electronically Signed On 03-02-2018 12:29:21 CURATOR OF EDUCATION by Venkat Blanc [email or web address] <ELECTRONICALLY SIGNED> By: Venkat Blanc MD, FACC 03/02/18 1229 0325 0325 Venkat Blanc MD, [facility] /EPI
[2018-03-02 13:14] VITALS: BP 124/70
[2018-03-02] MEDS ORDERED: XARELTO15 MG PO (14:09)
--- NOTE | 2018-03-02 14:25 | NUR ---
PT D/C'D TO HOME. ALL CONSULTS OK WITH D/C. IV AND CARDIAC MONITER D/C'D. EDUCATION GIVEN RE FOLLOW-UPS, MEDICATIONS, AND DRS ORDERS. ALL BELONGINGS PACKED UP AND LEFT WITH PT ACCOMPANIED BY FAMILY AND STAFF.
--- NOTE | 2018-03-03 12:47 | CON ---
[address] [address] CONSULTATION Name: MACHO SANZE [place] Room: [address] IN M.R.#: [id number] Admission: 03/01/18 Attend Phys: Martínez Faith MD Discharge: 03/02/18 Date of : 68 Report #: [id number] THIS REPORT FOR: //name// CC: Martínez Faith [facility] physician/PCP INDICATION: DVT and pulmonary embolus. HISTORY OF PRESENT ILLNESS: The patient is a very pleasant 47-year-old gentleman who was just hospitalized with acute inferolateral wall myocardial infarction. On catheterization, he was found to have an acutely occluded mid circumflex coronary artery. The LAD was found to be chronically occluded and filled by right to left collaterals. LV function was normal. Peak troponin at that time was 17. He underwent percutaneous coronary intervention and stenting of the acute occlusion in the circumflex. Post-procedure, he had thrombosis of the stent requiring a second trip to the lab. He was placed on more aggressive anticoagulation and the remainder of his hospital course was unremarkable. He presented to the Emergency Room with acute onset chest discomfort on the right side, which was different from his presenting symptoms with his myocardial infarction. He was found to have extensive pulmonary embolus involving the right pulmonary arteries. The patient has been placed on anticoagulation. At the time of interview, he is without complaint. PAST MEDICAL HISTORY: 1. Type 2 diabetes mellitus. 2. Coronary artery disease with recent percutaneous coronary intervention. 3. Hypothyroidism. 4. Pulmonary embolus on this admission. CURRENT MEDICATIONS: Metformin 500 mg daily, levothyroxine 125 mcg daily, aspirin 81 mg daily, Plavix 75 mg daily, metoprolol 25 mg b.i.d., atorvastatin 40 mg at bedtime. ALLERGIES: KEFLEX AND ANGIOMAX. SOCIAL HISTORY: The patient does not smoke regular cigarettes. He uses vaporizer. He drinks alcohol occasionally. FAMILY HISTORY: Positive for coronary artery disease. REVIEW OF SYSTEMS: A 14-point review of systems as per HPI, otherwise unremarkable. PHYSICAL EXAMINATION: VITAL SIGNS: Stable. Blood pressure 109/71, pulse is 56 and regular. GENERAL: This is a pleasant young gentleman in no distress. [place] [address] CONSULTATION Name: SINDY SANZ Room: [address] IN [facility]#: [id number] Admission: 03/01/18 Attend Phys: Martínez Faith MD Discharge: 03/02/18 Date of : 68 Report #: [id number] HEENT: Extraocular muscles intact. Mucous membranes moist. NECK: Shows no jugular venous distention. There are no carotid bruits. CHEST: Reveals clear lung lowry without wheezes or rales. CARDIOVASCULAR: Reveals regular rhythm, normal S1 and S2. I do not appreciate gallop or murmur. ABDOMEN: Reveals normal bowel sounds. The abdomen is soft, nontender. EXTREMITIES: Shows no edema. Peripheral pulses 2+ and palpable. The patient does have extensive bruising where his prior catheterization was done extending into the scrotum. IMPRESSION AND RECOMMENDATIONS: 1. Acute pulmonary embolus. Recommend Xarelto 15 mg b.i.d. for 20 days and then 20 mg daily thereafter for at least 3 months. 2. Coronary artery disease with recent percutaneous coronary intervention as outlined above. Continue dual antiplatelet therapy with aspirin 81 mg daily and Plavix 75 mg daily. 3. Type 2 diabetes. Continue metformin per primary service. 4. Hyperlipidemia. Based on the patient's development of coronary artery disease, would recommend continue atorvastatin 40 mg at bedtime. 5. The patient will be on multiple blood thinners including Xarelto, aspirin and Plavix. Should he develop any bleeding, would suggest that the aspirin be the first medicine to be held. In light of no bleeding at this time, I would continue triple therapy. <ELECTRONICALLY SIGNED> By: Venkat Blanc MD, FACC 03/03/18 1247 1304 1821Venkat Blanc MD, FACC /nt
== END 2018-03-02 14:47 | disposition home or self-care (01) | DRG 176 ==
LOC: M.ERS 03:23 → M.TBA-ER 04:23 → M.2W 05:25
PROVIDERS: Emergency Medicine Emergency Medical Services; ADMIT Internal Medicine
DX: I26.99 Other pulmonary embolism without acute cor pulmonale (principal); E11.9 Type 2 diabetes mellitus without complications; E03.9 Hypothyroidism, unspecified; I25.10 Atherosclerotic heart disease of native coronary artery without angina pectoris; E78.5 Hyperlipidemia, unspecified; F17.210 Nicotine dependence, cigarettes, uncomplicated; I25.2 Old myocardial infarction; Z95.5 Presence of coronary angioplasty implant and graft; Z79.02 Long term (current) use of antithrombotics/antiplatelets; Z79.82 Long term (current) use of aspirin; Z79.84 Long term (current) use of oral hypoglycemic drugs; Z79.899 Other long term (current) drug therapy; Z88.8 Allergy status to other drugs, medicaments and biological substances; Z82.49 Family history of ischemic heart disease and other diseases of the circulatory system; Z83.3 Family history of diabetes mellitus

== ENCOUNTER 2020-07-06 08:15 | Observation (INO) | payer OTHER ==
[~2020-07-06] VITALS: Ht 180.3 cm; Wt 68.0 kg
[~2020-07-06 08:15] MED LIST changes: +ASPIR 8181 MG PO; +PLAVIX 75 MG TA75 M1 PO; +XARELTO15 MG PO
[2020-07-06 08:38] LABS: HEMATOCRIT 46.2 % (42.0-52.0); HEMOGLOBIN 15.6 gm/dL (14.0-18.0); MCH 29.4 pg (26.0-34.0); MCHC 33.8 g/dL (28.0-37.0); MPV 7.8 fl. (7.2-11.1); RBC 5.31 mil/uL (4.50-6.00); RDW-CV 13.9 % (10.5-14.5); WBC 4.7 thou/uL (4.0-11.0)
[2020-07-06 08:46] LABS: POTASSIUM 4.1 mmol/L (3.5-5.1)
[2020-07-06 08:51] LABS: ALBUMIN 4.1 g/dL (3.4-5.0); TOTAL BILIRUBIN 0.7 mg/dL (<0.1-1.0); TOTAL PROTEIN 7.3 g/dL (6.4-8.2)
[2020-07-06 09:35] VITALS: BP 111/69
--- NOTE | 2020-07-06 14:23 | EKG ---
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[place] : 1970 Requested By: Alek Elaine Order Number: [id number] MD: Harlan Grande Measurements Intervals [place] Rate: 56 P: 31 DC: 171 QRS: -35 QRSD: 110 T: 88 QT: 433 QTc: 418 Interpretive Statements Sinus rhythm Left axis deviation Low voltage, extremity leads Baseline wander in lead(s) II,III,aVF Compared to ECG 03/01/2018 03:25:13 Left-axis deviation persists Low QRS voltage now present Myocardial infarct finding no longer present Prolonged QT interval no longer present Electronically Signed On 07-06-2020 14:23:10 CDT by Harlan Grande [email or web address] <ELECTRONICALLY SIGNED> By: Harlan Grande MD, [facility] 07/06/20 1423 9 9 Harlan Grande MD, [facility] /EPI
--- NOTE | 2020-07-06 14:46 | CARD ---
[address] [address] CARDIAC CATH REPORT Name: SINDY SANZ Room: [address] M.RDamion#: [id number] Admission: 07/06/20 Attend Phys: Harlan Grande MD, Discharge: Date of : 68 Report #: [id number] THIS REPORT FOR: cc: Melvin Way MD, Stephen D MD Holkins,Harlan Moya MD [facility] ~ APPROVED REPORT Study performed: 07/06/2020 09:12:13 Patient Details Patient Status: ED Room #: The patient is a 49 year-old male Event Personnel Harlan Grande Rn Admission, Kelli Jones RN Data Modeling Specialist, Lindsey Marcum RTR Monitor, Solo StackIS Scrub Procedures Performed Art Access - R femoral artery , Left Heart Cath w/or w/o Coronaries LHC , MEAGAN Place w/wo Plasty Single RCA , MEAGAN Place w/wo Plasty Single CIRC , Hemostasis w/ Angioseal Indication Unstable angina Risk Factors Family History, Hypercholesterolemia, Hypertension, Tobacco History () Previous Procedures/Diagnoses Previous PCI, Previous AL Admission/Lab Medications/Medications given during procedure Heparin IV 8000 units, Heparin IV 5000 units, Aggrastat IV bolus 10.9 ml, Aggrastat IV 19.9 ml per hr, Nitroglycerin IC 150 mcg, Solumedrol IV 125 mg, Benadryl IV 75 mg, Effient PO 60 mg, Aspirin PO 162 mg Procedure Narrative The patient was brought urgently to the Cardiac Catheterization Laboratory and was prepped and draped in a sterile manner. The right femoral was infiltrated with 2% Lidocaine [place] [address] CARDIAC CATH REPORT Name: SINDY SANZ Room: [address] Shawn#: [id number] Admission: 07/06/20 Attend Phys: Harlan Grande MD, Discharge: Date of : 68 Report #: [id number] conscious sedation was used throughout procedure with appropriate monitoring and was performed in the presence of a registered nurse who was an independent trained observer other than the physician performing the procedure. A 6F Ultimum sheath was inserted into the right femoral artery. Coronary angiography was performed using coronary diagnostic catheters. The right coronary system was accessed and visualized with a 6F JR4 catheter. The left coronary system was accessed and visualized with a 6F JL4 catheter. The left ventricle was accessed and visualized with a 6F Pigtail catheter. Left ventricular/Aortic Valve gradient assessed via catheter pullback. Left ventriculogram was performed in HAGER projection. Pre-demployment femoral angiogram was performed . Closure device was deployed with a 6 Fr Angioseal STS. The patient tolerated the procedure well and there were no complications associated with the procedure. There was no hematoma. The patient developed itching and wheals during the procedure he was given IV Solu-Medrol and IV Benadryl. There was no hypotension and no bradycardia or tachycardia. He demonstrated no wheezing and there was a never shortness of breath or desaturation. Intraoperative Conscious Sedation Sedation start time: 09:58 Case end Time: 11:26 Fentanyl 75 mcg Versed 3 mg Fluoro Time: 22.8 minutes Dose: DAP [id number] cGycm2 3631 mGy Contrast Type and Amount: Omnipaque 440 ml Diagnostic Cath Left Main 0% narrowing LAD 90% proximal LAD stenosis with subtotal mid vessel occlusion and minimal antegrade flow beyond the mid LAD; there were prominent right to left collaterals filling the distal LAD in retrograde fashion. Circumflex 90% mid vessel in-stent restenosis Right Coronary Dominant vessel with 75% tubular proximal narrowing and 90% focal stenosis at the acute margin; there were prominent collaterals from the distal right coronary artery to the LAD system Left Ventriculography The left ventricle is normal in size with normal contractility. The left ventricular ejection fraction is estimated to be 60%. Left ventricular wall motion abnormalities are present. [place] [address] CARDIAC CATH REPORT Name: MUUSINDY Koenig Room: [address] M.R.#: [id number] Admission: 07/06/20 Attend Phys: Harlan Grande MD, Discharge: Date of : 68 Report #: [id number] insufficiency. Subtle anterior hypokinesis is noted Hemodynamics The aortic pressure is 112/69 mmHg with a mean of 87 mmHg. The left ventricular pressure is 111/-2 mmHg with a mean of mmHg. The left ventricular end diastolic pressure is 8 mmHg. PCI Technique Lesion Anticoagulation was achieved with Heparin. Aggrastat IV bolus 10.9 ml given. Aggrastat gtt 19.9 ml/hr started. Patient was preloaded with Heparin IV 8000 units. Percutaneous coronary intervention was performed on the mid right coronary artery. The lesion stenosis prior to intervention was 90% with CHEMA 3 flow. A 6F JR 4.0 Guide Catheter was used to engage the right ostium. A ProwaterFlex 180CM Interventional Guidewire was used to cross the lesion. BALLOON DILATION A Balloon catheter Trek RX 2.5 X 8 was inserted and inflated up to 17.00atm for 22seconds. Additional Inflation: 18.00atm for 10seconds. STENT DEPLOYMENT A drug-eluting stent Santo RX Stent 2.75X8mm was inserted and inflated up to 15.00atm for 8seconds. Additional Inflation: 18.00atm for 8seconds. Additional Inflation: 20.00atm for 6seconds. POST STENT DEPLOYMENT BALLOON DILATION A Balloon catheter NC Trek RX 3.0 X 12 was inserted and inflated up to 15.00atm for 6seconds. Final angiography reveals 0 % stenosis with CHEMA 3 flow. PCI Technique Lesion 2 Percutaneous Coronary Intervention was performed on the proximal right coronary artery. The lesion stenosis prior to intervention was 75% with CHEMA 3 flow. Balloon Dilation A Balloon catheter Trek RX 2.75 X 15 was inserted and inflated up to 14.00atm for 11seconds. Stent Deployment A drug-eluting stent [place] RX Stent 3.0X22mm was inserted and inflated up to 12.00atm for 8seconds. Additional Inflation: 16.00atm for 7seconds. Additional Inflation: 18.00atm for 10seconds. [address] [address] CARDIAC CATH REPORT Name: SINDY SANZ Room: [address] Sonny Escobar#: [id number] Admission: 07/06/20 Attend Phys: Harlan Grande MD, Discharge: Date of : 68 Report #: [id number] Post Stent Deployment Balloon Dilation A Balloon catheter NC Trek RX 3.0 X 12 was inserted and inflated up to 17.00atm for 6seconds. Additional Inflation: 18.00atm for 8seconds. Final angiography reveals 0 % stenosis with CHEMA 3 flow. PCI Technique Lesion 3 Percutaneous Coronary Intervention was performed on the mid circumflex artery segment. Patient was preloaded with Heparin IV 8000 units. The lesion stenosis prior to intervention was 90% with CHEMA 3 flow. A 6FR LAUNCHER EBU 3.5 Guide Catheter was used to engage the left main ostium. A BMW 190cm Interventional Guidewire was used to cross the lesion. Balloon Dilation A Balloon catheter Trek RX 2.75 X 12 was inserted and inflated up to 12.00atm for 8seconds. Additional Inflation: 15.00atm for 9seconds. Stent Deployment A drug-eluting stent Santo RX Stent 2.21O69kd was inserted and inflated up to 14.00atm for 6seconds. Additional Inflation: 14.00atm for 7seconds. A 2nd drug-eluting stent Santo RX Stent 3.0 x 12mm was inserted and inflated up to 12 jose rafael for 5 seconds; 15 jose rafael for 5 seconds; 12 jose rafael for 6 seconds. Final angiography reveals 0 % stenosis with CHEMA 3 flow. Conclusion 1. Significant multivessel coronary artery disease characterized by the following: A 90% proximal LAD stenosis with complete occlusion just distal to the first septal frame stylist with minimal and slow antegrade flow beyond this point B 90% in-stent restenosis of the mid circumflex C dominant right coronary artery 75% tubular proximal narrowing and 90% focal stenosis at the acute margin with prominent right to left collaterals [place] [address] CARDIAC CATH REPORT Name: SINDY SANZ Room: [address] Sonny Escobar#: [id number] Admission: 07/06/20 Attend Phys: Harlan Grande MD, Discharge: Date of : 68 Report #: [id number] 2. Normal global LV function, estimated ejection fraction being 60% with subtle anterior hypokinesis 3. Normal left-sided hemodynamic study 4. Successful PCI with deployment of drug-eluting stents in the proximal and mid right coronary artery with 0% residual narrowing at both sites following stent deployment and CHEMA-3 flow the distal vessel 5. Successful PCI with deployment of drug-eluting stent at the site of 90% mid circumflex in-stent restenosis with 0% residual narrowing and CHEMA-3 flow to the distal vessel Recommendations Cardiac Risk Reduction Program Aggressive Medical Therapy Medications Administered Aspirin (any) Prasugrel Diagnostic Cath Approved by: Harlan Grande MD Date/Time: 07/06/2020 14:42:06 <ELECTRONICALLY SIGNED> By: Harlan Grande MD, [facility] 07/06/20 1446 1446 1446Harlan Grande MD, FACC /INF
[2020-07-06 15:00] VITALS: BP 111/79
--- NOTE | 2020-07-06 15:11 | H ---
[place] [address] HISTORY AND PHYSICAL Name: SINDY SANZ Room: [address] ADM [facility] M.R.#: [id number] Admission: 07/06/20 Attend Phys: Harlan Grande MD, Discharge: Date of : 68 Report #: [id number] THIS REPORT FOR: cc: Melvin Way MD, Stephen D MD Holkins,Harlan Moya MD [facility] ~ DOC #: [id number] Harlan Grande MD [facility] ADMIT DATE: 07/06/2020 CARDIOLOGY ADMISSION HISTORY AND PHYSICAL HISTORY OF PRESENT ILLNESS: The patient is a very pleasant 49-year-old male with history of coronary artery disease, 2 years and 4 months status post acute lateral infarction interrupted by PCI to the circumflex. Of note, he had an anaphylactoid reaction to Angiomax during the procedure. Recently, he has noted recrudescence of chest pain with exertion, typical of his prior angina. Episodes have become more frequent and more severe. Recent stress echocardiogram was performed, the patient walked into stage III of a Margarito protocol. He developed chest pain in both stage II and stage III with 2-1.5 mm inferior and anterolateral ST segment depression in stage II, and 2.5-3 mm of inferior and anterolateral ST segment depression in stage III. There were distal septal and anteroapical wall motion abnormalities noted on echocardiographic imaging post-exercise. The patient has continued to experience chest pain and was admitted through the ER this morning because of recurrent chest discomfort following an unstable pattern. Risk factors for coronary artery disease include hyperlipidemia, diabetes, mild weight excess. MEDICATIONS: Have included aspirin 81 mg, atorvastatin 40 mg daily, clopidogrel 75 mg daily, Synthroid 125 mcg daily, metformin 500 mg b.i.d., and p.r.n. sublingual nitroglycerin. PAST MEDICAL HISTORY: Remarkable for diabetes, hypercholesterolemia and hypothyroidism. FAMILY HISTORY: Remarkable for father having an aortic aneurysm. SOCIAL HISTORY: He is currently smoking a modest amount of cigarettes. REVIEW OF SYSTEMS: Remarkable for the following, [place] [address] HISTORY AND PHYSICAL Name: SINDY SANZ Room: [address]#: [id number] Admission: 07/06/20 Attend Phys: Harlan Grande MD, Discharge: Date of : 68 Report #: [id number] CARDIAC: He has noted exertional chest discomfort with a minimal activity provoking angina compatible with unstable angina. GENERAL: He notes mild weight excess. ENDOCRINE: His diabetic control has been satisfactory by his description. Remainder of the 10-point review of systems is unremarkable. PHYSICAL EXAMINATION: GENERAL: Demonstrates a middle-aged male who is mildly overweight. VITAL SIGNS: Blood pressure 130/70, pulse rate 75, respirations 18 per minute. NECK: Jugular venous pressure is normal. Carotids are 1-2+. CHEST: Clear. HEART: Reveals normal first and second heart sounds with a question of an S4 gallop. ABDOMEN: Mildly obese. EXTREMITIES: Without edema with intact peripheral pulses. ASSESSMENT: 1. Unstable angina. 2. Coronary artery disease status post lateral infarction 2 years and 4 months ago. 3. Hypercholesterolemia. 4. Diabetes. 5. Hypothyroidism. 6. Recently abnormal stress echocardiogram. RECOMMENDATIONS: Given the clinical scenario, most compatible with unstable angina and the risk factor profile with known coronary disease, I would recommend urgent cardiac catheterization to define current coronary anatomy and prospects for subsequent therapeutic modification. This has been discussed with the patient and family. Critical care time is 45 minutes from 09:10 to 09:55 on 06/16/2020. Harlan Grande MD [facility] <ELECTRONICALLY SIGNED> By: Harlan Grande MD, [facility] 07/06/20 1511 0855 [id number] Grande MD, [facility] /nt
--- NOTE | 2020-07-06 17:25 | EKG ---
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1970 Requested By: Harlan Grande Order Number: [id number] Reading MD: Venkat Blanc Measurements Intervals [place] Rate: 47 P: 41 [place]: 171 QRS: -48 QRSD: 94 T: 84 QT: 444 QTc: 393 Interpretive Statements Sinus bradycardia Left anterior fascicular block low voltage, extremity leads Compared to ECG 07/06/2020 08:20:17 Left anterior fascicular block now present Sinus rhythm no longer present Electronically Signed On 07-06-2020 17:25:44 CDT by Venkat Blanc [email or web address] <ELECTRONICALLY SIGNED> By: Venkat Blanc MD, FACC 07/06/20 1725 1314 1314 Venkat Blanc MD, FAC /EPI
[2020-07-06 17:36] VITALS: BP 115/75
[2020-07-06 17:43] VITALS: BP 114/75
[2020-07-06 20:00] VITALS: BP 122/65
[2020-07-07 00:23] VITALS: BP 110/67
[2020-07-07 04:02] VITALS: BP 93/55
[2020-07-07 04:48] LABS: HEMATOCRIT 44.6 % (42.0-52.0); HEMOGLOBIN 15.2 gm/dL (14.0-18.0); MCH 29.9 pg (26.0-34.0); MCHC 34.1 g/dL (28.0-37.0); MCV 87.6 fL (80.0-100.0); MPV 8.4 fl. (7.2-11.1); RBC 5.09 mil/uL (4.50-6.00); RDW-CV 14.3 % (10.5-14.5); WBC 10.9 thou/uL (4.0-11.0)
[2020-07-07 05:25] LABS: ALBUMIN 3.5 g/dL (3.4-5.0); ALKALINE PHOSPHATASE 93 U/L (46-116); ANION GAP 11 mmol/L (7-16); BUN 18 mg/dL (7-18); CALCIUM 8.9 mg/dL (8.5-10.1); CHLORIDE 105 mmol/L (98-107); CHOLESTEROL 109 mg/dL (<200); CO2 23 mmol/L (21-32); CREATININE 0.9 mg/dL (0.6-1.3); GLUCOSE 132 mg/dL (70-99); HDL CHOLESTEROL 35 mg/dL (>40); LDL CHOLESTEROL 63 mg/dL (<100); POTASSIUM 3.9 mmol/L (3.5-5.1); SGOT 12 U/L (15-37); SGPT 22 U/L (30-65); SODIUM 139 mmol/L (136-145); TC:HDL 3.1 Ratio (Not establshd); TOTAL BILIRUBIN 0.7 mg/dL (<0.1-1.0); TOTAL PROTEIN 6.6 g/dL (6.4-8.2); TRIGLYCERIDE 59 mg/dL (<150); TROPONIN-I LEVEL 0.09 ng/mL (<0.06); VLDL 12 mg/dL (<40)
[2020-07-07 05:32] LABS: SERUM ASSESSMENT CLEAR
[2020-07-07 08:12] VITALS: BP 100/60
[2020-07-07] MEDS ORDERED: EFFIENT10 MG PO (09:39)
[2020-07-07 11:38] VITALS: BP 100/60
--- NOTE | 2020-07-07 12:23 | EKG ---
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1970 Requested By: Harlan Grande Order Number: [id number] Reading MD: Harlan Grande Measurements Intervals [place] Rate: 46 P: 24 FL: 169 QRS: -24 QRSD: 109 T: 61 QT: 458 QTc: 401 Interpretive Statements Sinus bradycardia Inferior infarct, old Compared to ECG 07/06/2020 13:14:47 Myocardial infarct finding now present Left anterior fascicular block no longer present Electronically Signed On 07-07-2020 12:23:10 CDT by Harlan Grande [email or web address] <ELECTRONICALLY SIGNED> By: Harlan Grande MD, [facility] 07/07/20 1223 0551 0551 Harlan Grande MD, [facility] /EPI
[2020-07-07 12:32] VITALS: BP 100/60
--- NOTE | 2020-07-07 12:36 | D ---
[facility] [address] [place] [address] DISCHARGE SUMMARY Name: SINDY SANZ Room: [address] M.R.#: [id number] Admission: 07/06/20 Attend Phys: Harlan Grande MD, Discharge: Date of : 68 Report #: [id number] THIS REPORT FOR: cc: Melvin Way MD, Stephen D MD Holkins, John M. MD [facility] ~ DOC #: [id number] Harlan Grande MD [facility] DATE OF DISCHARGE: 07/07/2020 FINAL DISCHARGE DIAGNOSES: 1. Unstable angina. 2. Coronary artery disease. 3. Status post percutaneous coronary intervention of the right coronary artery and circumflex. 4. Type 2 diabetes. 5. Hyperlipoproteinemia. 6. Hypothyroidism. PROCEDURES: On 07/06/2020 -- left heart catheterization, left ventriculography, selective coronary arteriography, and percutaneous coronary intervention with deployment of drug-eluting stents in the right coronary artery and circumflex. HOSPITAL COURSE: The patient is a very pleasant 49-year-old male with aggressive coronary artery disease, slightly greater than 2 years status post a lateral infarction interrupted by acute PCI to the circumflex. Recently, he has noted recrudescence of chest pain similar to his prior angina occurring frequently with only modest activity provoking the events. He has not had rest pain, but becomes quite frequently with activity. Recent stress echocardiogram was performed. The patient walked into stage III developing chest pain with prominent inferior and anterolateral ST segment depression between 2 and 3 mm suggesting ischemia with distal septal and anteroapical hypokinesis post-exercise. He has underlying diabetes, hyperlipidemia, and hypothyroidism. In this context, I elected to proceed with cardiac catheterization, which was undertaken on 07/06/2020. 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 Given this data, we discussed the options and he strongly desires not to consider surgery at this point. In that setting, I elected to proceed with complex percutaneous coronary intervention, following drug[place] [address] DISCHARGE SUMMARY Name: MUUSINDY [place] Room: [address] Sonny Escobar#: [id number] Admission: 07/06/20 Attend Phys: Harlan Grande MD, Discharge: Date of : 68 Report #: [id number] proximal-mid right coronary artery and at the acute margin with 0% residual narrowing at both sites following stent deployment. I also placed 2 drug-eluting stents in the mid circumflex with 0% residual narrowing. Troponin izaiah inconsequentially to 0.09. Additional lab post-procedurally revealed sodium 139, potassium 3.9, BUN 18, creatinine 0.9, glucose 132. Hemoglobin 15.2, white blood cell count 10,900 with 231,000 platelets. The patient ambulated in the hallways without difficulty and there was good hemostasis at the right femoral site of catheterization. He was discharged home on the following medications: Prasugrel 10 mg p.o. daily, metformin 500 mg p.o. b.i.d. to be resumed on 07/08/2020, L-thyroxine 125 mcg daily, aspirin 81 mg daily. We will plan to see the patient in the office in two to three weeks with followup with my nurse practitioner Jazlyn Marcos. Therefore, the patient is discharged home in stable condition on the aforementioned medications with followup as described above. Harlan Grande MD [facility] JMH/KAY <ELECTRONICALLY SIGNED> By: Harlan Grande MD, [facility] 07/07/20 1236 0847 [id number] Grande MD, [facility] /nt
== END 2020-07-07 13:00 | disposition home or self-care (01) ==
LOC: M.ERS 08:15 → M.TBA-ER 09:13 → M.2W 11:42
PROVIDERS: Emergency Medicine; ADMIT Internal Medicine; ATTEND Internal Medicine
DX: I25.110 Atherosclerotic heart disease of native coronary artery with unstable angina pectoris (principal); Z20.822 Contact with and (suspected) exposure to COVID-19; E78.6 Lipoprotein deficiency; E03.9 Hypothyroidism, unspecified; F17.210 Nicotine dependence, cigarettes, uncomplicated; Z79.84 Long term (current) use of oral hypoglycemic drugs; Z79.899 Other long term (current) drug therapy